=== PATIENT | female | born 1975 | race Caucasian/White ===

== ENCOUNTER → 2019-03-09 10:50 | Outpatient (CLI) | payer OTHER, SELFPAY ==
--- NOTE | 2019-03-09 10:53 | DI.MG.S_ITS ---
BILATERAL DIGITAL SCREENING MAMMOGRAM 3D/2D WITH CAD: 03/09/2019 CLINICAL: Routine screening. Comparison is made to exams dated: 02/20/2011 mammogram and 07/24/2004 mammogram - [facility]. The tissue of both breasts is heterogeneously dense. This may lower the sensitivity of mammography. Current study was also evaluated with a Computer Aided Detection (CAD) system. No significant masses, calcifications, or other findings are seen in either breast. There has been no significant interval change. IMPRESSION: NEGATIVE There is no mammographic evidence of malignancy. A 1 year screening mammogram is recommended. This exam was interpreted at Station ID: [id number]. NOTE: For mammograms, a report in lay terms will be sent to the patient. Approximately 15% of breast malignancies will not be visualized mammographically. In the management of a palpable breast mass, a negative mammogram must not discourage biopsy of a clinically suspicious lesion. Electronically Signed By: Sheri oliva/yaquelin:03/09/2019 11:33:57 letter sent: Normal Exam ACR BI-RADS Category 1: Negative 3341F
== END ==
PROVIDERS: PCP Internal Medicine
DX: Z12.31 Encounter for screening mammogram for malignant neoplasm of breast (principal)
CPT/HCPCS: 77063; 77067

== ENCOUNTER → 2021-10-31 15:33 | Outpatient (CLI) | payer OTHER, SELFPAY ==
--- NOTE | 2021-10-31 | DI.MG.S_ITS ---
BILATERAL DIGITAL SCREENING MAMMOGRAM 3D/2D WITH CAD: 10/31/2021 CLINICAL: Routine screening. Comparison is made to exams dated: 03/09/2019 mammogram, 02/20/2011 mammogram, and 07/24/2004 mammogram - [facility]. There are scattered fibroglandular elements in both breasts. Current study was also evaluated with a Computer Aided Detection (CAD) system. No significant masses, calcifications, or other findings are seen in either breast. There has been no significant interval change. IMPRESSION: NEGATIVE There is no mammographic evidence of malignancy. A 1 year screening mammogram is recommended. This exam was interpreted at Station ID: [id number]. NOTE: For mammograms, a report in lay terms will be sent to the patient. Approximately 15% of breast malignancies will not be visualized mammographically. In the management of a palpable breast mass, a negative mammogram must not discourage biopsy of a clinically suspicious lesion. Electronically Signed By: Albertina duque/yaquelin:10/31/2021 17:01:49 letter sent: Normal Exam ACR BI-RADS Category 1: Negative 3341F
== END ==
PROVIDERS: PCP Physician Assistant Medical; Referring Provider Physician Assistant Medical; Visit Provider Physician Assistant Medical
DX: Z12.31 Encounter for screening mammogram for malignant neoplasm of breast (principal)
CPT/HCPCS: 77063; 77067

== ENCOUNTER 2022-08-19 17:49 | Emergency (ER) | payer OTHER, SELFPAY ==
--- NOTE | 2022-08-19 18:03 | DI.RAD.S_ITS ---
PROCEDURE: XR CHEST 1V INDICATIONS: chest pain TECHNIQUE: One view of the chest was acquired. COMPARISON: None. FINDINGS: Surgical changes and devices: None. Lungs and pleura: Lungs are clear. No pleural effusions or pneumothorax. Mediastinum: Mediastinal contours appear normal. Heart size is normal. Bones and chest wall: No suspicious bony lesions. Overlying soft tissues appear unremarkable. IMPRESSION: No acute cardiopulmonary abnormality. Approved by: Michael Tejada M.D. on 08/19/2022 at 18:23
[2022-08-19 18:15] VITALS: BP 179/98; PULSE 93; RESP 20; O2SAT 96; BMI 32.5
[2022-08-19 19:21] LABS: Add Manual Diff / Slide Review NO; Basophils Absolute Auto 100 /uL (0-100); Basophils Percent Auto 1.3 % (0-2); Eosinophils Absolute Auto 100 /uL (0-450); Eosinophils Percent Auto 1.4 % (2-4); Hematocrit 44.6 % (36-46); Hemoglobin 15.6 g/dL (12.0-16.0); Lymphocytes Absolute Auto 1300 /uL (1100-4500); Lymphocytes Percent Auto 17.2 % (25-40); Mean Corpuscular Hemoglobin 32.6 PG (26-34); Mean Corpuscular Volume 93.1 fL (80-100); Monocytes Absolute Auto 500 /uL (0-900); Monocytes Percent Auto 6.1 % (3-14); Neutrophils Absolute Auto 5600 /uL (1500-7000); Platelet Count 293 X10^3/uL (150-400); Red Blood Cell Count 4.79 X10^6/uL (4.0-5.2); Red Cell Distribution Width 13.5 % (11.6-14.8); White Blood Cell Count 7.6 X10^3/uL (4.5-11.0)
[2022-08-19 19:30] LABS: PTT Partial Thromboplastin Tim 32 SECONDS (26-36)
[2022-08-19 19:31] LABS: Alanine Aminotransferase 369 IU/L (<35); Albumin 4.8 g/dL (3.5-5.0); Albumin Globulin Ratio 1.4 (1.0-2.8); Alkaline Phosphatase 129 U/L (38-126); Aspartate Aminotransferase 192 IU/L (14-36); Bilirubin Total 0.9 mg/dL (0.2-1.3); Blood Urea Nitrogen 12 mg/dL (7-17); Calcium 9.8 mg/dL (8.4-10.2); Carbon Dioxide 27 mmol/L (22-32); Chloride 100 mmol/L (98-107); Creatine Kinase 31 U/L (30-135); Estimated Glomerular Filt Rate > 60 mL/min (>60); Globulin 3.5 g/dL (1.7-4.1); Glucose 117 mg/dL (70-100); HEMOLYSIS < 15 (0-50); Lipase 111 U/L (23-300); Potassium 3.4 mmol/L (3.4-5.1); Sodium 138 mmol/L (137-145); Total Protein 8.3 g/dL (6.3-8.2)
[2022-08-19 19:42] LABS: Troponin I < 0.012 ng/mL (0.01-0.034)
[2022-08-19 21:00] VITALS: BP 182/98; PULSE 81; RESP 16; RESP 18; O2SAT 95; O2SAT 96
[2022-08-19 21:15] VITALS: BP 172/90; PULSE 78; RESP 16; O2SAT 95
[2022-08-19 21:30] VITALS: BP 169/92; PULSE 76; RESP 14; O2SAT 96
--- NOTE | 2022-08-19 21:42 | ED_ITS ---
HPI - General Adult General Chief complaint: Hypertension Stated complaint: High BP, stiff neck, headache 220/123 Time Seen by Provider: 08/19/22 21:41 Source: patient Mode of arrival: Ambulatory History of Present Illness HPI narrative: Patient is a 47-year-old female with history of hypertension presenting today with chest discomfort and back pain. She has been monitoring her blood pressure intermittently she says it is always high the diastolic is always greater than 100 she has been on amlodipine it did not work. She had a mild headache. She does need something was little bit off today she took her blood pressure a few times noted to be in the 190s and 200. she has no significant shortness of breath she has no chest pain now. Headache has improved mildly. Overall feeling okay she has not had any fever chills. She has no abdominal pain nausea or vomiting. She states that she does drink alcohol 3-4 vodkas daily and that her liver enzymes are noted to be elevated. Related Data Home Medications Medication Instructions Recorded Confirmed MULTIVITAMIN (#MULTIPLE VITAMINS) 1 cap PO ##0 02/13/12 05/05/21 amlodipine 2.5 mg tablet 2.5 mg PO DAILY 12/09/18 05/05/21 cholecalciferol (vitamin D3) 125 5,000 unit PO DAILY 12/09/18 05/05/21 mcg (5,000 unit) capsule hydrochlorothiazide 25 mg tablet 25 mg PO DAILY 05/05/21 05/05/21 metoprolol succinate 25 mg 12.5 mg PO DAILY 05/05/21 05/05/21 tablet,extended release 24 hr Previous Rx's Medication Instructions Recorded losartan 50 mg tablet 50 mg PO DAILY #60 tabs 08/19/22 Allergies Allergy/AdvReac Type Severity Reaction Status Date / Time No Known Drug Allergies Allergy Unverified 05/05/21 15:56 Review of Systems Review of Systems Narrative: GENERAL: Denies chills, fatigue, malaise, fever, sweats, travel HEENT: Denies sinus pain, ear pain, sore throat, difficulty swallowing, neck pain RESPIRATORY: Denies dyspnea, cough, wheezing, hemoptysis, sputum. CARDIOVASCULAR: See HPI GASTROINTESTINAL: Denies nausea, vomiting, abdominal pain, diarrhea, constipation, melena. : Denies dysuria, frequency, incontinence, hematuria, urinary retention, flank pain. MUSCULOSKELETAL: Denies weakness, joint pain, or bony pain SKIN: No rash, no erythema, no pruritus NEUROLOGIC: Denies weakness, dizziness, headache, numbness, change in speech, confusion PSYCHIATRIC: No concerning psychosocial issues. 12 point review of systems is negative except for those stated above and HPI Patient History Medical History (Updated 08/19/22 @ 22:21 by Kenia Chavez DO) Abnormal Pap smear of cervix Ankle pain (2015) Chicken pox Chronic back pain (2013) Chronic headaches Depression History of cold sores Rectal bleeding Shoulder pain Surgical History Anesthesia Status post dilation and curettage (2006) Status post hernia repair (2013) Family History Father Hypertension Hyperlipidemia Seizures Mother No problems noted. Brother No problems noted. Sister No problems noted. Grandfather Heart attack Heart disease Grandmother Hepatitis Grandmother Rectal polyp Hyperlipidemia Hypertension Family/Other No problems noted. Family/Other No problems noted. Social History Smoking Status: Never smoker Smoking Status: Never smoker Substance Use Type: does not use Exam Initial Vital Signs Initial Vital Signs: Vital Signs Pulse Rate 93 H 08/19/22 18:15 Respiratory Rate 20 08/19/22 18:15 Blood Pressure 179/98 H 08/19/22 18:15 Pulse Oximetry 96 08/19/22 18:15 Oxygen Delivery Method 08/19/22 18:15 GENERAL: Alert very pleasant 47 year old female and in no acute distress. HEENT: Head atraumatic,EOMI, pupils reactive, face symmetric, moist mucous membranes CARDIOVASCULAR: Regular rate and rhythm without murmurs, rubs or gallops. RESPIRATORY: Breath sounds equal bilaterally, no wheezes rales or rhonchi. ABDOMEN: Soft, nontender. Normoactive bowel sounds all 4 quadrants. No guarding or rebound. No right upper quadrant pain no jaundice EXTREMITIES: Normal range of motion, no clubbing or edema. Neurovascularly intact NEUROLOGICAL: Alert and oriented x4.Normal gait and speech. SKIN: Warm, dry, no laceration, no petechiae, no rashes or lesions. Course Orders Ordered: Discontinued Medications Aspirin (Aspirin 81 Mg Chew Tab) 324 mg PO NOW ONE Stop: 08/19/22 18:04 Vital Signs Vital signs: Vital Signs - 8 hr 08/19/22 21:15 08/19/22 21:30 08/19/22 22:00 Pulse Rate 78 76 86 Respiratory Rate 16 14 17 Blood Pressure 172/90 H 169/92 H 188/95 H Pulse Oximetry 95 96 95 Oxygen Delivery Method Room Air Room Air Room Air 08/19/22 22:15 Pulse Rate 77 Respiratory Rate 16 Blood Pressure 172/101 H Pulse Oximetry 96 Oxygen Delivery Method Room Air Medical Decision Making Lab Data Result diagrams: 08/19/22 18:35 08/19/22 18:35 Labs: Lab Results 08/19/22 08/19/22 08/19/22 Range/Units 18:35 18:35 18:35 WBC 7.6 (4.5-11.0) X10^3/uL RBC 4.79 (4.0-5.2) X10^6/uL Hgb 15.6 (12.0-16.0) g/dL Hct 44.6 (36-46) % MCV 93.1 (80-100) fL MCH 32.6 (26-34) PG MCHC 35.0 (30-36) % RDW 13.5 (11.6-14.8) % Plt Count 293 (150-400) X10^3/uL Neut % (Auto) 74.0 (50-75) % Lymph % (Auto) 17.2 L (25-40) % [place] % (Auto) 6.1 (3-14) % Eos % (Auto) 1.4 L (2-4) % Baso % (Auto) 1.3 (0-2) % Neut # (Auto) 5600 (0164-8386) /uL Lymph # (Auto) 1300 (8354-5991) /uL [place] # (Auto) 500 (0-900) /uL Eos # (Auto) 100 (0-450) /uL Baso # (Auto) 100 (0-100) /uL PT 12.0 (10.1-12.7) SECONDS INR 1.0 (0.9-1.3) APTT 32 (26-36) SECONDS Sodium 138 (137-145) mmol/L Potassium 3.4 (3.4-5.1) mmol/L Chloride 100 (98-107) mmol/L Carbon Dioxide 27 (22-32) mmol/L BUN 12 (7-17) mg/dL Creatinine 0.75 (0.52-1.04) mg/dL Estimated GFR > 60 (>60) mL/min BUN/Creatinine Ratio 16.0 (6-22) Glucose 117 H (70-100) mg/dL Calcium 9.8 (8.4-10.2) mg/dL Magnesium 2.0 (1.6-2.3) mg/dL Total Bilirubin 0.9 (0.2-1.3) mg/dL AST 192 H (14-36) IU/L ALT 369 H (<35) IU/L Alkaline Phosphatase 129 H (38-126) U/L Total Creatine Kinase 31 (30-135) U/L CK-MB (CK-2) TNP CK-MB (CK-2) Rel Index TNP Troponin I < 0.012 (0.01-0.034) ng/mL Total Protein 8.3 H (6.3-8.2) g/dL Albumin 4.8 (3.5-5.0) g/dL Globulin 3.5 (1.7-4.1) g/dL Albumin/Globulin Ratio 1.4 (1.0-2.8) Lipase 111 (23-300) U/L Imaging Data Chest x-ray: Radiologist's Impression: Signed Patient: Cara Ferrara MR#: [id number] : 1975 Acct:[id number] Age/Sex: 47 / F Date of Service: 08/19/22 Loc: ED Accession Number: [id number] ?? Procedure: XR chest 1V Ordering Provider: Kenia Chavez D.O. PROCEDURE:? XR CHEST 1V ? INDICATIONS:? chest pain ? TECHNIQUE:? One view of the chest was acquired.? ? COMPARISON:? None. ? FINDINGS:? ? Surgical changes and devices:? None.? ? Lungs and pleura:? Lungs are clear.? No pleural effusions or pneumothorax.? ? Mediastinum:? Mediastinal contours appear normal.? Heart size is normal.? ? Bones and chest wall:? No suspicious bony lesions.? Overlying soft tissues appear unremarkable.? ? IMPRESSION:? No acute cardiopulmonary abnormality. ? ? ? Approved by: Michael Tejada M.D. on 08/19/2022 at 18:23? ECG Data Interpretation: Normal sinus rhythm rate 86 KS interval 142 QRS 88 QTC 452 is T-wave inversion noted in lead 3, V3, be to his nonspecific changes no obvious ST elevations or depressions EKG 2. Sinus rhythm rate 75 persistent T-wave inversions in lead [address] changes MDM Narrative Medical decision making narrative: Patient has uncontrolled blood pressure she says it has been uncontrolled for while mostly the diastolic seems to be high. She was started on hydr ochlorothiazide twice a day isn't seem to be helping she has previously tried amlodipine also not helping. She is follow closely with her primary care provider. She has known elevated liver enzymes she has previously had ultrasound of her liver. His she said she was told she had fatty liver. She has no right upper quadrant pain no nausea or vomiting. His at at this time I see no need to repeat ultrasound RUQ symptomatic and has chronic enzymes. She does drink alcohol I discussed with her to cut back this. At this time she has no sign of end-organ damage. Actually will stop her metoprolol and start her on losartan and hydrochlorothiazide to see if that helps better control her blood p ressure. She states that she gets quite OCD about numbers of blood pressures or she tries not to check it daily. However recommend checking a couple times a week at the same time every day. At this time blood pressure has decreased without any intervention she is symptom-free no need for any further workup. Differential diagnosis included dissection is but no longer having pain, headache, is aneurysm, acute coronary syndrome Discharge Plan Departure Patient Disposition: Home Clinical Impression: Chronic hypertension, Elevated liver enzymes Instructions: DI for High Blood Pressure Activity Restrictions/Additional Instructions: *You have been diagnosed with elevated blood pressure, elevated liver enzymes *What to do: At this time please cut back her drinking. Monitor liver enzymes. Please monitor your blood pressure couple times a week same time every day. *Continue to take medications as directed Stop taking metoprolol Start taking losartan 50 mg once daily --> SENT TO [facility] Hydrochlorothiazide is only supposed to be taken once a day to maybe take hydrochlorothiazide in the morning and losartan at night *Follow up with your primary care provider in 2-3 days or call [phone] *Return to ER if you should have increasing chest pain shortness of breath palpitations headaches or any new, worsening or concerning symptoms Prescriptions: New losartan 50 mg tablet 50 mg PO DAILY Qty: 60 0RF No Action MULTIVITAMIN (#MULTIPLE VITAMINS) 1 cap PO Qty: 0 amlodipine 2.5 mg tablet 2.5 mg PO DAILY cholecalciferol (vitamin D3) 5,000 unit capsule 5,000 unit PO DAILY hydrochlorothiazide 25 mg tablet 25 mg PO DAILY metoprolol succinate 25 mg tablet extended release 24 hr 12.5 mg PO DAILY Referrals: Fabiana Frances PA-C [Primary Care Provider] - Visit Report Forms: Patient Portal/API
[2022-08-19 22:00] VITALS: BP 188/95; PULSE 86; RESP 17; O2SAT 95
[2022-08-19 22:15] VITALS: BP 172/101; PULSE 77; RESP 16; O2SAT 96
== END 2022-08-19 22:55 | disposition home or self-care (01) ==
PROVIDERS: Emergency Provider Emergency Medicine; PCP Physician Assistant Medical
DX: I10 Essential (primary) hypertension (principal); R74.8 Abnormal levels of other serum enzymes; R07.9 Chest pain, unspecified
CPT/HCPCS: 36415; 71045; 80053; 82550; 83690; 83735; 84484; 85025; 85610; 85730; 93005; 93010; 99283; 99284

== ENCOUNTER → 2023-12-09 | Outpatient (CLI) | payer OTHER, SELFPAY ==
--- NOTE | 2023-12-09 09:49 | DI.MG.S_ITS ---
BILATERAL DIGITAL SCREENING MAMMOGRAM 3D/2D WITH CAD: 12/09/2023 CLINICAL: Routine screening. Comparison is made to exams dated: 10/31/2021 mammogram, 03/09/2019 mammogram, and 02/20/2011 mammogram - [facility]. There are scattered areas of fibroglandular density in both breasts (category b / 25%-50% glandular tissue). Current study was also evaluated with a Computer Aided Detection (CAD) system. No significant masses, calcifications, or other findings are seen in either breast. There has been no significant interval change. IMPRESSION: NEGATIVE There is no mammographic evidence of malignancy. A 1 year screening mammogram is recommended. Based on the Tyrer Cuzick model (a risk assessment model) the patient's lifetime risk is 10.2% and her 10 year risk is 2.4%. According to the ACR, ACS, and NCCN guidelines, an annual breast MRI exam along with mammogram is recommended if the patient's lifetime risk is 20% or greater. This exam was interpreted at Station ID: [id number]. NOTE: For mammograms, a report in lay terms will be sent to the patient. Approximately 15% of breast malignancies will not be visualized mammographically. In the management of a palpable breast mass, a negative mammogram must not discourage biopsy of a clinically suspicious lesion. Electronically Signed By: Jose davis/yaquelin:12/09/2023 11:15:55 letter sent: Normal Exam ACR BI-RADS Category 1: Negative 3341F
--- NOTE | 2023-12-09 22:52 | DI.NM.S_ITS ---
DATE OF SERVICE: 12/09/2023 PROCEDURE: Exercise perfusion study. INDICATIONS: Chest pain, hypertension. RADIOPHARMACEUTICAL: 26.7 millicuries of technetium-99m Myoview IV was injected at stress and 11.6 millicuries of technetium-99m Myoview IV was injected at rest. CARDIAC STRESS: The patient walked on Erik protocol for 10 minutes and achieved TANISHA -27% with 105% of target heart rate. Resting blood pressure 148/88 and peak blood pressure 195/100 mmHg. Achieved 12.8 METS of workload. Baseline rhythm sinus. During stress, no convincing ischemic changes seen. No significant arrhythmias. No anginal symptoms. RAW DATA: There is adequate myocardial uptake. GATED STUDY: Stress LV ejection fraction 85% and resting LV ejection fraction 76%. Resting end-diastolic volume 85 mL. TID ratio 0.61, which is within normal limits. Lung/heart ratio 0.56, which is abnormal. MYOCARDIAL PERFUSION SCAN: Stress supine, resting supine and stress prone images were compared to each other. There was normal myocardial perfusion. CONCLUSION: This is a normal exercise perfusion study. Excellent exercise tolerance. Mildly elevated blood pressure response. No anginal symptoms. No ischemic electrocardiographic changes or significant arrhythmias. Preserved left ventricular function. However, lung/heart ratio is 0.56, which is abnormal. Consider 2D echo to make sure there is no significant valvular pathology or diastolic dysfunction. Cara Ferrara - JOURDAN/brayan/ADEN doc#: [id number]/job#: [id number] dd: 12/09/2023 17:01:00 dt: 12/09/2023 22:44:00 DICTATING MD/COPIES TO: Frederick Shelton MD COPIES MNE: BREA;
== END ==
LOC: NUCM 09:48
PROVIDERS: PCP Physician Assistant Medical; Referring Provider Physician Assistant Medical; Visit Provider Physician Assistant Medical
DX: Z12.31 Encounter for screening mammogram for malignant neoplasm of breast (principal); R92.323 Mammographic fibroglandular density, bilateral breasts; R07.9 Chest pain, unspecified; I10 Essential (primary) hypertension
CPT/HCPCS: 77063; 77067; 78452; 93017; A9502

== ENCOUNTER → 2024-03-06 13:42 | Outpatient (CLI) | payer OTHER, SELFPAY ==
--- NOTE | 2024-03-06 13:44 | DI.ECHO.S_ITS ---
[place] [facility]+ [facility] : : [address] : : [place] : : [id number] : : Phone: [phone] Echocardiogram Report + + :Name: ZEUS BANERJEE Study Date: 03/06/2024 Height: 65 in : :Hospital ReadingLocation: Weight: 181 lb : : Gender: Female BSA: 1.9 m2 : :: 1975 Age: 48 yrs BP: 105/83 mmHg: :Reason For Study: CHEST PAIN : :Ordering Physician: MARIO, : :LULY Performed By: Peyman Storey : :Referring: LULY MARTIN : + + Interpretation Summary The study quality was technically difficult. The ejection fraction is estimated to be 60-65%. Diastolic parameters suggest probable normal left ventricular diastolic function and normal filling pressures. The right ventricle is normal in size and function. No significant valvular abnormalities. Pulmonary artery pressures cannot be estimated because of the lack of a measurable TR jet velocity but the IVC suggests a CVP of around 3 mmHg. Procedure: A two-dimensional transthoracic echocardiogram with color flow and Doppler was performed. There is no prior echocardiogram noted for this patient. The study quality was technically difficult. The patient was in sinus rhythm with heart rates between 78-94 bpm during the exam. Left Ventricle: The left ventricle is normal in size and wall thickness. The ejection fraction is estimated to be 60-65%. Diastolic parameters suggest probable normal left ventricular diastolic function and normal filling pressures. Right Ventricle: The right ventricle is normal in size and function. Atria: The left atrial size is normal. Right atrial size is normal. The interatrial septum grossly appears intact with no obvious evidence for an atrial septal defect. Mitral Valve: The mitral valve is normal. There is no mitral valve stenosis. There is no mitral regurgitation noted. Aortic Valve: The aortic valve is not well visualized. There is no aortic valve stenosis. No aortic regurgitation is present. Tricuspid Valve: The tricuspid valve is not well visualized, but is grossly normal. There is no tricuspid stenosis. No tricuspid regurgitation. Pulmonary artery pressures cannot be estimated because of the lack of a measurable TR jet velocity but the IVC suggests a CVP of around 3 mmHg. Pulmonic Valve: The pulmonic valve is not well visualized. There is no pulmonic valvular stenosis. There is no pulmonic valvular regurgitation. Great Vessels: The aortic root is normal size. The dimensions of the ascending aorta are normal. The IVC is of normal diameter and collapses greater than 50% with a sniff. This suggests a low right atrial pressure of 3 mm Hg. Pericardium/ Pleura There is no pericardial effusion. There is no pleural effusion. MMode/2D Measurements & Calculations LVIDd: 4.3 cm LVOT diam: 2.2 cm LVIDs: 2.7 cm Ao root diam: 3.2 cm FS: 36.1 % asc Aorta Diam: 3.4 cm IVSd: 0.96 cm Ao Arch Diam (Prox Trans): 2.7 cm LVPWd: 0.90 cm LV madsen. diameter/BSA (cm/m^2): 2.2 LV sys. diameter/BSA (cm/m^2): 1.4 LA A2 area: 9.3 cm2 RA long axis: 4.1 cm LA A4 area: 12.1 cm2 RA area: 9.5 cm2 LA length (vol): 4.9 cm RA vol: 18.8 ml LA vol: 19.3 ml RA : 9.9 ml/m2 LA vol index: 10.2 ml/m2 IVC diam: 2.0 cm RVD1 (basal): 3.0 cm RVD2 (mid): 2.3 cm TAPSE: 2.2 cm Doppler Measurements & Calculations Ao V2 max: 131.5 cm/sec LVOT Max Jose: 108.4 cm/sec Ao V2 mean: 101.0 cm/sec LV V1 max P.7 mmHg Ao max P.9 mmHg LV V1 VTI: 19.8 cm Ao mean P.5 mmHg ROSANNA(I,D): 3.3 cm2 Ao V2 VTI: 22.3 cm ROSANNA(V,D): 3.0 cm2 sev ratio: 0.89 ROSANNA indexed to BSA (cm^2/m^2): 1.7 MV E max jose: 76.9 cm/sec PA V2 max: 80.0 cm/sec MV A max jose: 91.0 cm/sec PA V2 mean: 55.8 cm/sec MV E/A: 0.85 PA mean P.4 mmHg Med Peak E' Jose: 7.4 cm/sec PA pr(Accel): 34.5 mmHg E/E' med: 10.4 Lat Peak E' Jose: 5.2 cm/sec E/E' lat: 14.9 E/e' average: 12.6 MV dec time: 0.18 sec SVLVOT): 72.9 ml Reading Physician:03:54 PM
== END ==
LOC: ECHO 13:43
PROVIDERS: PCP Physician Assistant Medical; Referring Provider Physician Assistant Medical; Visit Provider Physician Assistant Medical
DX: R07.9 Chest pain, unspecified (principal)
CPT/HCPCS: 93306

== ENCOUNTER 2024-09-20 17:38 | Emergency (ER) | payer OTHER, SELFPAY ==
[2024-09-20] VITALS (13 sets, daily range): BP systolic 123–160; BP diastolic 66–94; PULSE 81–115; RESP 16–24; TEMP 36.9; O2SAT 95–99; BMI 31.6
--- NOTE | 2024-09-20 19:59 | ED.SKABFB ---
HPI - Skin/Abscess/Foreign Bdy General Chief complaint: Skin/Abscess/Foreign Body Stated complaint: MULTIPLE CAT BITES ON ARM RIGHT Time Seen by Provider: 09/20/24 19:45 Source: patient Mode of arrival: Ambulatory Limitations: no limitations History of Present Illness HPI narrative: 49-year-old female works in [employer] long term, over the last couple of days has multiple scratches and bites to bilateral upper extremities from 2 different cats, all catheterization of the long term have been vaccinated against rabies and have all her immunizations up-to-date, she has pain increasing from her right hand cat bite area. Has pain with movement of her fingers. Scratches bilateral hands and upper forearms. No facial injuries. No truncal injuries. She has not currently taking any antibiotics. Last tetanus shot updated a year ago. Related Data Home Medications Medication Instructions Recorded Confirmed MULTIVITAMIN (#MULTIPLE VITAMINS) 1 cap PO ##0 02/13/12 05/05/21 amlodipine 2.5 mg tablet 2.5 mg PO DAILY 12/09/18 05/05/21 cholecalciferol (vitamin D3) 125 5,000 unit PO DAILY 12/09/18 05/05/21 mcg (5,000 unit) capsule hydrochlorothiazide 25 mg tablet 25 mg PO DAILY 05/05/21 05/05/21 metoprolol succinate 25 mg 12.5 mg PO DAILY 05/05/21 05/05/21 tablet,extended release 24 hr Previous Rx's Medication Instructions Recorded losartan 50 mg tablet 50 mg PO DAILY #60 tabs 08/19/22 amoxicillin 875 mg-potassium 1 tab PO BID #14 tabs 09/20/24 clavulanate 125 mg tablet hydrocodone 5 mg-acetaminophen 325 1 tab PO Q6H PRN pain #14 tabs 09/20/24 mg tablet Allergies Allergy/AdvReac Type Severity Reaction Status Date / Time No Known Drug Allergies Allergy Verified 09/20/24 18:12 Patient History Medical History (Updated 09/20/24 @ 22:39 by Francisco Thurston MD) History of cold sores Shoulder pain Chicken pox Ankle pain (2015) Chronic back pain (2013) Chronic headaches Depression Abnormal Pap smear of cervix Rectal bleeding Surgical History Anesthesia Status post hernia repair (2013) Status post dilation and curettage (2006) Family History Father Hypertension Hyperlipidemia Seizures Mother No problems noted. Brother No problems noted. Sister No problems noted. Grandfather Heart attack Heart disease Grandmother Hepatitis Grandmother Rectal polyp Hyperlipidemia Hypertension Family/Other No problems noted. Family/Other No problems noted. Social History Smoking Status: Never smoker Smoking Status: Never smoker Exam Narrative Exam Narrative: GENERAL: Well-developed patient, in mild distress. HEAD: Atraumatic. Normocephalic. EYES: Pupils equal round and reactive. Extraocular motions intact. No scleral icterus. No injection or drainage. ENT: Nose without bleeding, purulent drainage. Throat without erythema, tonsillar hypertrophy or exudate. Airway patent. NECK: Trachea midline. Non tender CARDIOVASCULAR: Regular rate and rhythm without murmurs, gallops, or rubs. RESPIRATORY: Clear to auscultation. Breath sounds equal bilaterally. No wheezes, rales, or rhonchi. GASTROINTESTINAL: Abdomen soft, non-tender, nondistended. EXTREMITIES: Multiple linear scratches bilateral upper extremities forearm and hand. Right hand with multiple small puncture wounds index finger and thumb. No significant visible swelling, has pain with attempted flexion, can fully extend. No lymphangitic streaking obvious to the forearm. No gross joint effusions obvious. BACK: Nontender without deformity or crepitance. No flank tenderness. NEURO: AOx3. Motor functions grossly nonfocal. SKIN: No rash or erythema of visible areas Initial Vital Signs Initial Vital Signs: Vital Signs Temperature 98.4 F 09/20/24 18:05 Pulse Rate 115 H 09/20/24 18:05 Respiratory Rate 18 09/20/24 18:05 Blood Pressure 145/94 H 09/20/24 18:05 Pulse Oximetry 95 09/20/24 18:05 Oxygen Delivery Method Room Air 09/20/24 18:05 Course Orders Ordered: ED Orders 09/20/24 20:09 XR hand RT min 3V Stat Discontinued Medications Hydrocodone Bitart/Acetaminophen (Hydrocodone/Acet 5/325 Tablet) 1 tab PO NOW ONE Stop: 09/20/24 21:36 Last Admin: 09/20/24 21:53 Dose: 1 tab Documented By: CHRISTIAN Hydrocodone Bitart/Acetaminophen (Hydrocodone/Acet 5/325 Prepack) 1 bottle MISC DIRECTED ONE Stop: 09/20/24 22:40 Last Admin: 09/20/24 22:41 Dose: 1 bottle Documented By: CHRISTIAN Amoxicillin/Clavulanate Potassium (Amoxicillin/Clav 875/125 Mg) 1 tab PO NOW ONE Stop: 09/20/24 20:49 Last Admin: 09/20/24 20:59 Dose: 1 tab Documented By: CHRISTIAN Hydromorphone HCl (Hydromorphone 0.5 Mg Inj) 0.5 mg IV NOW ONE Stop: 09/20/24 20:49 Last Admin: 09/20/24 20:59 Dose: 0.5 mg Documented By: CHRISTIAN Ketorolac Tromethamine (Ketorolac 30 Mg/Ml Vial) 15 mg IV NOW ONE Stop: 09/20/24 20:49 Last Admin: 09/20/24 20:59 Dose: 15 mg Documented By: CHRISTIAN Ondansetron HCl (Ondansetron 4 Mg/2 Ml Inj) 4 mg IV NOW ONE Stop: 09/20/24 20:49 Last Admin: 09/20/24 21:00 Dose: 4 mg Documented By: CHRISTIAN Vital Signs Vital signs: Vital Signs - 8 hr 09/20/24 19:30 09/20/24 19:31 09/20/24 19:31 Pulse Rate 104 H 93 H Respiratory Rate 24 Blood Pressure 142/81 H Pulse Oximetry 96 96 Oxygen Delivery Method Room Air 09/20/24 20:00 09/20/24 20:00 09/20/24 20:30 Pulse Rate 93 H 84 Respiratory Rate Blood Pressure 160/87 H Pulse Oximetry 99 95 Oxygen Delivery Method 09/20/24 20:31 09/20/24 20:31 09/20/24 21:00 Pulse Rate 81 Respiratory Rate 24 Blood Pressure 148/85 H 147/77 H Pulse Oximetry 99 Oxygen Delivery Method Room Air 09/20/24 21:00 09/20/24 21:05 09/20/24 21:05 Pulse Rate 88 92 H Respiratory Rate 24 18 Blood Pressure 148/72 H Pulse Oximetry 97 99 Oxygen Delivery Method Room Air Room Air 09/20/24 21:30 09/20/24 21:30 09/20/24 22:00 Pulse Rate 91 H Respiratory Rate 16 Blood Pressure 135/81 145/77 H Pulse Oximetry 98 Oxygen Delivery Method Room Air 09/20/24 22:00 09/20/24 22:30 09/20/24 22:30 Pulse Rate 86 89 Respiratory Rate 16 16 Blood Pressure 127/68 Pulse Oximetry 96 95 Oxygen Delivery Method Room Air Room Air MDM - Skin/Abscess/Foreign Bdy Imaging Data Extremity x-ray #1: Radiologist's Impression: [address] [address] XRay Report Signed Patient: Cara Ferrara MR#: [id number] : 1975 Acct:[id number] Age/Sex: 49 / F Date of Service: 09/20/24 Loc: ED Accession Number: [id number] Procedure: XR hand RT min 3V Ordering Provider: Francisco Thurston MD PROCEDURE: XR HAND RT MIN 3V INDICATIONS: pain TECHNIQUE: 3 views of the hand(s) acquired. COMPARISON: None. FINDINGS: Bones: No fractures or dislocations. Carpal bones are normally aligned. No suspicious bony lesions. Soft tissues: No suspicious soft tissue calcifications. IMPRESSION: No acute right hand fracture or dislocation. No gross soft tissue abnormalities. Dictated by: Ayan Busch M.D. on 09/20/2024 at 20:56 Approved by: Ayan Busch M.D. 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 No fever on triage. No obvious gross swelling. Multiple puncture wounds noted. Hand x-ray ordered from triage, pending results at this time. Patient seemed to be having significant pain. Requests pain medications. IV Toradol, IV Dilaudid/Zofran. We will give oral Augmentin. Tetanus up to date. X-ray right hand showed no obvious fracture or foreign body. See radiology report. Right wrist velcro splint placed for comfort. Further antibiotic Augmentin prescription sent to her pharmacy. Further analgesics with hydrocodone/APAP dose now, home pack, prescription sent to her pharmacy. Encouraged to continue [id number] ibuprofen. Advised wound check with the regular doctor in the next couple of days. Return precautions discussed Discharge Plan Departure Patient Disposition: Home Clinical Impression: Cat bite of multiple sites of right hand and fingers with infection, Cat scratch of multiple sites Activity Restrictions/Additional Instructions: History of working animal long term, recent bite and scratch wounds from 2 different cats that are fully vaccinated at the long term, increasing pain to the right hand and fingers area. Multiple scratches and other puncture wounds bilateral upper extremities noted. X-rays showed no obvious fracture, no retained foreign bodies, per radiologist's report. Antibiotics initiated, first dose Augmentin given, further prescription antibiotics sent to your pharmacy. Pain control medications given. Further pain control prescription medication sent to your pharmacy. Take ibuprofen and other pain control medications as directed. Take antibiotics for full course as directed. Consider wound check with your regular doctor in the next couple of days. Return to this/nearest emergency department for any change worsening symptoms or any concerns prior Prescriptions: New amoxicillin-pot clavulanate 875-125 mg tablet 1 tab PO BID Qty: 14 0RF hydrocodone-acetaminophen 5-325 mg tablet 1 tab PO Q6H PRN (Reason: pain) Qty: 14 0RF No Action MULTIVITAMIN (#MULTIPLE VITAMINS) 1 cap PO Qty: 0 amlodipine 2.5 mg tablet 2.5 mg PO DAILY cholecalciferol (vitamin D3) 5,000 unit capsule 5,000 unit PO DAILY hydrochlorothiazide 25 mg tablet 25 mg PO DAILY metoprolol succinate 25 mg tablet extended release 24 hr 12.5 mg PO DAILY losartan 50 mg tablet 50 mg PO DAILY Qty: 60 0RF Referrals: Fabiana Frances PA-C [Primary Care Provider] - Stand Alone Forms: Patient Portal/API/Survey
--- NOTE | 2024-09-20 20:09 | DI.RAD.S_ITS ---
PROCEDURE: XR HAND RT MIN 3V INDICATIONS: pain TECHNIQUE: 3 views of the hand(s) acquired. COMPARISON: None. FINDINGS: Bones: No fractures or dislocations. Carpal bones are normally aligned. No suspicious bony lesions. Soft tissues: No suspicious soft tissue calcifications. IMPRESSION: No acute right hand fracture or dislocation. No gross soft tissue abnormalities. Dictated by: Ayan Busch M.D. on 09/20/2024 at 20:56 Approved by: Ayan Busch M.D. on 09/20/2024 at 20:56
[2024-09-20] MEDS: AMOXICILLIN/CLAV 875/125 MG 1 TAB PO (20:59)
[2024-09-20] MEDS: KETOROLAC 30 MG/ML VIAL 15 MG IV (20:59)
[2024-09-20] MEDS: HYDROMORPHONE 0.5 MG INJ IV (20:59)
[2024-09-20] MEDS: ONDANSETRON 4 MG/2 ML INJ IV (21:00)
[2024-09-20] MEDS: HYDROCODONE/ACET 5/325 TABLET 1 TAB PO (21:53)
--- NOTE | 2024-09-20 22:01 | PC.NURSE ---
Circulation and sensation distal to splint remains intact after splint placement. Decreased motor function d/t pain unchanged after splint placement.
[2024-09-20] MEDS: HYDROCODONE/ACET 5/325 PREPACK 1 BOTTLE MISC (22:41)
== END 2024-09-20 22:50 | disposition home or self-care (01) ==
PROVIDERS: Emergency Provider Emergency Medicine; PCP Physician Assistant Medical
DX: S50.812A Abrasion of left forearm, initial encounter (principal); S50.811A Abrasion of right forearm, initial encounter; S60.512A Abrasion of left hand, initial encounter; S60.410A Abrasion of right index finger, initial encounter; S60.311A Abrasion of right thumb, initial encounter; B99.9 Unspecified infectious disease; W55.01XA Bitten by cat, initial encounter; W55.03XA Scratched by cat, initial encounter; Y93.9 Activity, unspecified; Y92.89 Other specified places as the place of occurrence of the external cause
CPT/HCPCS: 73130; 96374; 96375; 99284; J1171; J1885; J2405